=== PATIENT | female | born 1940 | race Caucasian/White ===

== ENCOUNTER 2022-01-09 06:10 | Day surgery (SDC) | payer MEDICARE, OTHER ==
[2022-01-08 16:56] VITALS: BMI 21.5
[2022-01-09] MEDS ORDERED: EPINEPHrine 0.3 MG in Ophthalmic Irrigation Solution 500 ML IRR SCH (06:30)
[2022-01-09] MEDS ORDERED: Cyclopentolate 1% Opth Drop 2 ML BOT ONE (06:32)
[2022-01-09] MEDS ORDERED: Phenylephrine 2.5% Ophth Soln 5 ML BOT ONE (06:32)
[2022-01-09] MEDS ORDERED: PROPOFOL 200 MG/20 ML VIAL ONE (06:43)
[2022-01-09] MEDS ORDERED: Triamcinolone 40 MG/ML VIAL ONE (06:43)
[2022-01-09] MEDS ORDERED: Lidocaine 1% PF 5 ML VIAL ONE (06:43)
[2022-01-09] MEDS ORDERED: Bupivacaine 0.75% 10 ML VIAL ONE (06:43)
[2022-01-09] MEDS ORDERED: Maxitrol 0.1% Opth Oint 3.5 GM TUBE ONE (06:43)
[2022-01-09] MEDS ORDERED: Lidocaine 4% PF 5 ML AMP ONE (06:43)
[2022-01-09] MEDS ORDERED: CEFAZOLIN 1 GM VIAL ONE (06:43)
[2022-01-09] MEDS ORDERED: fentaNYL Citrate/PF 100 MCG/2 ML SYRINGE ONE (06:52)
[2022-01-09] MEDS ORDERED: Midazolam HCl 2 mg/2 ml Vial ONE (06:52)
== END 2022-01-09 08:36 | disposition home or self-care (01) ==
LOC: SDC 06:10
PROVIDERS: ATTEND Ophthalmology Retina Specialist
PROC: 08T43ZZ Resection of Right Vitreous, Percutaneous Approach (ICD-10-PCS; principal; 2022-01-09)
PROC: 08NE3ZZ Release Right Retina, Percutaneous Approach (ICD-10-PCS; 2022-01-09)
DX: H43.311 Vitreous membranes and strands, right eye (principal); Z79.899 Other long term (current) drug therapy; Z88.0 Allergy status to penicillin; Z88.5 Allergy status to narcotic agent
CPT/HCPCS: J0171; J0690; J2250; J2704; J3301; J3490

== ENCOUNTER 2024-01-28 10:00 | Day surgery (SDC) | payer MEDICARE, OTHER ==
[2024-01-27 14:49] VITALS: BMI 21.2
[~2024-01-28 10:00] MED LIST: EPINEPHrine 0.3 MG in Ophthalmic Irrigation Solution 500 ML IRR SCH
[2024-01-28] MEDS ORDERED: PHENYLephrine 2.5% Ophth Soln 15 ml Bottle ONE (10:36)
[2024-01-28] MEDS ORDERED: Cyclopentolate 1% Opth Drop 2 ML BOT ONE (10:36)
[2024-01-28] MEDS ORDERED: Dexamethasone 20 MG/5 ML VIAL ONE (11:25)
[2024-01-28] MEDS ORDERED: CEFAZOLIN 1 GM VIAL ONE (11:25)
[2024-01-28] MEDS ORDERED: Lidocaine 4% PF 5 ML AMP ONE (11:25)
[2024-01-28] MEDS ORDERED: Maxitrol 0.1% Opth Oint 3.5 GM TUBE ONE (11:25)
[2024-01-28] MEDS ORDERED: PROPOFOL 200 MG/20 ML VIAL ONE (11:25)
[2024-01-28] MEDS ORDERED: Bupivacaine 0.75% 10 ML VIAL ONE (11:25)
[2024-01-28] MEDS ORDERED: Lidocaine 1% PF 5 ML VIAL ONE (11:25)
== END 2024-01-28 12:35 | disposition home or self-care (01) ==
LOC: SDC 10:00
PROVIDERS: ATTEND Ophthalmology Retina Specialist
PROC: 08953ZZ Drainage of Left Vitreous, Percutaneous Approach (ICD-10-PCS; principal; 2024-01-28)
DX: H43.312 Vitreous membranes and strands, left eye (principal); Z88.0 Allergy status to penicillin; Z88.5 Allergy status to narcotic agent
CPT/HCPCS: 67041; J0171; J0690; J1100; J2704; J3490